=== PATIENT | male | born 1980 | race Caucasian/White ===

== ENCOUNTER 2018-08-25 00:41 | Emergency (ER) | payer SELFPAY ==
[2018-08-25 00:42] VITALS: BP 167/104; PULSE 98; RESP 13; TEMP 36.8; O2SAT 94; BMI 26.4
--- NOTE | 2018-08-25 02:16 | ED.DCSUM_ITS ---
- ER Visit Summary Date of Service: 08/25/18 Chief Complaint: [Heroin overdose] History of Present Illness: The patient is a 38 M [presents the emergency department complaint of heroin overdose. Patient presents via EMS. Patient admits to using heroin tonight by snorting it. Patient states today is the f irst time he had used in the last 6 months. Patient denies feeling suicidal or homicidal. Patient states that he believes his friend called the paramedics. Paramedics did have to administer Narcan x2. On arrival patient without complaints. Patient is never overdosed before. He has no medical history.] Physical Examination: [HEENT-PERRLA, EOMI. Cranial nerves II through XII grossly intact. TMs clear. Mucous membranes moist. No adenopathy. Cardiovascular-regular rate and rhythm without murmur or ectopy Lungs-clear to auscultation, chest wall stable without crepitus or subcu emphysema Abdomen-normoactive bowel sounds, soft, nontender, no rebound or rigidity, no peritoneal signs. Extremities-intact ?4, normal range of motion, normal pulses, atraumatic] Test Results: [None indicated] Emergency Department Course and Treatment: [Patient was observed for over 2 hours and he had no recurrence of symptoms.] Treatment Plan: [Patient will be referred to primary care physician contract paralegal for no doc. Patient advised to discontinue heroin use.] Disposition: [Discharged home stable condition] Impression: [Accidental heroin overdose] This note was generated with [employer] dictation software. It may contain incorrect words, spelling, and punctuation that were not noted in review of the chart prior to signing ED Disposition - Plan for ED Patient: Referrals: Care Physician,No Primary [Primary Care Provider] -
--- NOTE | 2018-08-25 02:16 | ED.DEP ---
ED Disposition - Plan for ED Patient: Instructions: ED Overdose Opiate Referrals: Care Physician,No Primary [Primary Care Provider] - Jeison Albrecht MD [STAFF PHYSICIAN] - 3-5 Days
[2018-08-25 02:48] VITALS: BP 148/105; PULSE 98; RESP 16; O2SAT 98
== END 2018-08-25 02:49 | disposition home or self-care (01) ==
PROVIDERS: Emergency Provider Emergency Medicine
DX: T40.1X1A Poisoning by heroin, accidental (unintentional), initial encounter (principal); Y92.9 Unspecified place or not applicable
CPT/HCPCS: 99284; A4216